=== PATIENT | female | born 1990 | race Caucasian/White ===

== ENCOUNTER 2016-11-30 23:50 | Emergency (ER) | payer BC | END 2016-12-01 00:54 | disposition home or self-care (01) | LOC: ER 23:50 | DX: T78.40XA Allergy, unspecified, initial encounter (principal); L50.9 Urticaria, unspecified; F17.200 Nicotine dependence, unspecified, uncomplicated | CPT/HCPCS: 93005; 96374; 99284; J1200; J2930 ==